=== PATIENT | female | born 1985 | race Caucasian/White ===

== ENCOUNTER 2017-07-01 15:59 | Emergency (ER) | payer OTHER ==
[~2017-07-01] VITALS: Ht 170.2 cm; Wt 59.0 kg
[2017-07-01] MEDS ORDERED: ALBUTEROL FS 2.5 MG/3 ML VIAL.NEB NEB ONE (16:30)
[2017-07-01] MEDS ORDERED: predniSONE 20 MG TABLET PO ONE (16:30)
[2017-07-01] MEDS ORDERED: predniSONE 20 MG TABLET ONE (16:40)
[2017-07-01] MEDS ORDERED: ALBUTEROL FS 2.5 MG/3 ML VIAL.NEB ONE (16:43)
[2017-07-01 17:33] VITALS: BP 128/86
--- NOTE | 2017-07-01 17:34 | NUR ---
Patient discharged to home in stable condition. Written and verbal after care instructions given. Patient verbalizes understanding of instruction.
== END 2017-07-01 17:35 | disposition home or self-care (01) ==
LOC: ER 16:01
DX: J45.909 Unspecified asthma, uncomplicated (principal)
CPT/HCPCS: A4606; Z7610